=== PATIENT | male | born 2000 | race Caucasian/White ===

== ENCOUNTER 2019-11-02 20:45 | Emergency (ER) | payer OTHER ==
[~2019-11-02] VITALS: Ht 167.6 cm; Wt 66.8 kg
[2019-11-02 21:29] VITALS: BP 117/72
[2019-11-02] MEDS ORDERED: DEXAMETHASONE 4 MG TABLET PO STA (21:53)
[2019-11-02] MEDS ORDERED: DEXAMETHASONE 4 MG TABLET ONE (21:54)
--- NOTE | 2019-11-02 21:57 | NUR ---
PT MEDICATED PER OCT. AWAITING RAD AND RECHECK AT THIS TIME
--- NOTE | 2019-11-02 22:06 | NUR ---
BACK FROM RAD
== END 2019-11-02 22:46 | disposition home or self-care (01) ==
LOC: ED 21:00
DX: J20.8 Acute bronchitis due to other specified organisms (principal); J02.8 Acute pharyngitis due to other specified organisms
CPT/HCPCS: 71046; 99283